=== PATIENT | female | born 2005 | race Two or more races ===

== ENCOUNTER 2025-04-14 13:13 | Inpatient (IN) | payer MEDICAID, OTHER ==
[~2025-04-14] VITALS: Ht 157.5 cm; Wt 46.9 kg
[2025-04-14] MEDS: SODIUM CHLORIDE 0.9% 1,000 ML IV ONE (15:00)
--- NOTE | 2025-04-14 15:09 | ED.PDOC ---
HPI (NEURO) HPI Comments 19-year-old female who presents to the ED for chief complaint of fall injury. Patient states approximately 1 hour ago she was feeling anxious, went into her [id number] room, then remembers waking up on the floor with a headache. Patient was apparently witnessed by [id number] having body shaking and droo ling, which lasted a minute, during which time the patient was unresponsive. Patient in the ED has noted bruise in the left side of the forehead but is otherwise alert and oriented x4 and able to answer all questions. Patient in the ED presents in wheelchair and states she is having a headache 10 of 10 with the associated exacerbating factor of moving her head and no relieving factors. Pt presents with mother who states that patient has a history of chronic headaches and states that she has a an appointment to see neurologist. Patient otherwise denies any history of seizures and denies having seen a neurologist or having taken antiseizure medication in the past. Patient has noted blood pressure of 130/91, heart rate 119 but otherwise stable vitals include temperature of 97.6 F respiratory rate 16 and O2 sat of 97% on room air. Patient in the ED otherwise denies any other symptoms at this time. 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 [employer]IAL History: No Pertinent R[employer]ATOR [employer]IAL History Family History Family History: Reviewed,noncontributory to illness Social History Smoker: Non-Smoker Alcohol: Denies ETOH Use Drugs: Denies Drug Use Lives In: Home Constitutional: denies: chills, diaphoresis, fatigue, fever, malaise, sweats, weakness, others EENTM: denies: blurred vision, double vision, ear bleeding, ear discharge, ear drainage, ear pain, ear ringing, eye pain, eye redness, hearing loss, mouth pain, mouth swelling, nasal discharge, nose bleeding, nose congestion, nose pain, photophobia, tearing, throat pain, throat swelling, voice changes, others Respiratory: denies: cough, hemoptysis, orthopnea, SOB at rest, shortness of breath, SOB with excertion, stridor, wheezing, others Cardiovascular: denies: chest pain, dizzy spells, diaphoresis, Dyspnea on exertion, edema, irregular heart beat, left arm pain, lightheadedness, palpitations, PND, syncope, others Gastrointestinal: denies: abdomen distended, abdominal pain, blood streaked bowels, constipated, diarrhea, dysphagia, difficulty swallowing, hematemesis, melena, nausea, poor appetite, poor fluid intake, rectal bleeding, rectal pain, vomiting, others Genitourinary: denies: abnormal vagina bleeding, burning, dyspareunia, dysuria, flank pain, frequency, hematuria, incontinence, pain, , vagina discharge, urgency, others Neurological: reports: fainting, headache; denies: dizziness, left sided numbness, left sided weakness, numbness, paresthesia, pre-existing deficit, right sided numbness, right sided weakness, seizure, speech problems, tingling, tremors, weakness, others Musculoskeletal: denies: back pain, gout, joint pain, joint swelling, muscle pain, muscle stiffness, neck pain, others Integumetry: denies: bruises, change in color, change in hair/nails, dryness, laceration, lesions, lumps, rash, wounds, others Allergic/Immunocompromised: denies: Difficulty Healing, Frequent Infections, Hives, Itching, others Hematologic/Lymphatic: denies: anemia, blood clots, easy bleeding, easy bruising, swollen glands, others Endocrine: denies: excessive hunger, excessive sweating, excessive thirst, excessive urination, flushing, intolerance to cold, intolerance to heat, unexplained weight gain, unexplained weight loss, others Psychiatric: denies: anxiety, bipolar disorder, depression, hopeless, panic disorder, schizophrenia, sleepless, suicidal, others All Other Systems: Reviewed and Negative Physical Exam General Appearance: Mild Distress HEENT: PERRL/EOMI, Other (Left forehead tender hematoma) Neck: Full Range of Motion, Normal Inspection, Other (Bilateral paraspinal tenderness to palpation) Respiratory: Lungs Clear, No Accessory Muscle Use, No Respiratory Distress, Normal Breath Sounds Cardiovascular: No Edema, No JVD, Tachycardia Breast Exam: Deferred Gastrointestinal: Non Tender, Soft Genitalia: Deferred Pelvic: Deferred Rectal: Deferred Extremities: Normal inspection, Normal range of motion, Non-tender, No pedal edema Neurologic: Alert (Oriented x4), Normal Affect, Normal Mood, Other (Ambulatory) Cerebellar Function: NOT DONE Reflexes: NOT DONE Skin: Dry, Normal Color, Warm Lymphatic: NOT DONE Was a procedure done? Was a procedure done?: No Differential Diagnosis (SZ) Seizure: Psychogenic Seizure, Alcohol Withdrawl, Closed Head Injury, Drug Ingestion, Hypocalcemia, Hypoglycemia, Hyponatremia, Hypoxemia, Idiopathic, Syncope, Encephalopathy Headache: Migraine, Closed Head Injury, Intracerebral Hemorrhage, Subarachnoid Hemorrhage, Subdural Hemorrhage, Post-Traumatic X-Ray, Labs, Meds, VS Vital Signs Date Time Temp Pulse Resp B/P (MAP) Pulse Ox O2 Delivery O2 Flow Rate FiO2 04/14/25 18:52 83 16 108/69 (82) 97 04/14/25 13:18 97.6 119 16 130/91 97 97.6 Lab Test 04/14/25 19:16 04/14/25 16:09 04/14/25 15:08 Range/Units Urine Color Yellow Yellow Urine Clarity Turbid H Clear Urine pH 6.0 5.0-9.0 Urine Specific [place] 1.035 1.001-1.035 Urine Protein Trace H Negative Urine Ketones 1+ H Negative Urine Blood Negative Negative /uL Urine Nitrite Negative Negative Urine Bilirubin Negative Negative Urine Urobilinogen Normal Negative mg/dL Urine Leukocyte Esterase Negative Negative /uL Urine RBC 2 0 - 4 /hpf Urine Microscopic WBC 2 0-5 /HPF Urine Squamous Epithelial Cells Mod <5 /hpf Urine Amorphous Crystals Few None Seen /hpf Urine Bacteria Few H None Seen /hpf Urine Mucus Few None Seen Urine Glucose Normal Normal mg/dL Troponin I High Sensitivity < 3 L < 3 L </=34 ng/L White Blood Count 20.0 H 4.4-10.8 10^3/uL Red Blood Count 4.93 4.0-5.20 10^6/uL Hemoglobin 15.9 12.2-16.2 g/dL Hematocrit 46.7 H 36.0-46.0 % Mean Corpuscular Volume 94.7 80.0-100.0 fL Mean Corpuscular Hemoglobin 32.3 H 28.0-32.0 pg Mean Corpuscular Hemoglobin Concent 34.1 32.0-36.0 g/dL Red Cell Distribution Width 13.4 11.8-14.3 % Platelet Count 264 140-450 10^3/uL Mean Platelet Volume 9.4 6.9-10.8 fL Neutrophils (%) (Auto) 85.2 H 37.0-80.0 % Lymphocytes (%) (Auto) 10.4 10.0-50.0 % Monocytes (%) (Auto) 4.2 0.0-12.0 % Eosinophils (%) (Auto) 0.0 0.0-7.0 % Basophils (%) (Auto) 0.2 0.0-2.0 % Neutrophils # (Auto) 17.0 H 1.6-8.6 10 ^3/uL Lymphocytes # (Auto) 2.1 0.4-5.4 10 ^3/uL Monocytes # (Auto) 0.8 0-1.3 10 ^3/uL Eosinophils # (Auto) 0 0-0.8 10 ^3/uL Basophils # (Auto) 0 0-0.2 10 ^3/uL Nucleated Red Blood Cells 0.0 % Sodium Level 139 136-145 mmol/L Potassium Level 3.9 3.5-5.1 mmol/L Chloride Level 105 98-107 mmol/L Carbon Dioxide Level 25 20-31 mmol/L Anion Gap 9 5-15 Blood Urea Nitrogen 6 L 9-23 mg/dL Creatinine 0.77 0.550-1.02 mg/dL Glomerular Filtration Rate Calc 114 >90 mL/min BUN/Creatinine Ratio 7.8 L 10.0-20.0 Serum Glucose 92 74-106 mg/dL Calcium Level 9.7 8.7-10.4 mg/dL Current Medications Medications (Trade) Dose Ordered Sig/Balbir Route Start Time Stop Time Status Last Admin Sodium Chloride 1,000 ml @ 1,000 mls/hr Q1H ONCE IV 04/14/25 15:00 04/14/25 15:59 DC 04/14/25 15:00 Acetaminophen/ Hydrocodone Bitart ([place] 5/325MG Tab) 1 tab ONCE ONCE PO 04/14/25 15:00 04/14/25 15:03 DC 04/14/25 16:[address] [address] Ph: [phone] DIAGNOSTIC IMAGING Diagnostic Imaging Report : [id number] Signed PATIENT: KAYLEEN SIDHU ACCT: [id number] UNIT: [id number] : 2005 LOC: ER ROOM / BED: / AGE / SEX: 19 / F ADM STATUS: REG ER SERVICE [id number] ORDERING PHYSICIAN: MANOJ KELSEY MD PROCEDURE(s): HWOCT - HEAD WITHOUT CONTRAST REASON: Possible seizure, left forehead injury ORDER NUMBER(s): [id number], ACCESSION NUMBER(s): [id number] CLINICAL HISTORY: Possible seizure, left forehead injury TECHNIQUE: Helical scanning was performed of the head from the skull base to the vertex. Multiplanar reconstructions were performed. This exam was performed according to our departmental dose optimization program. Up-to-date CT equipment and radiation dose reduction techniques are utilized as appropriate. CTDI 49 DLP 783 COMPARISON: None FINDINGS: There is no evidence for acute intracranial hemorrhage, acute ischemic changes, mass, mass effect, or extra-axial fluid collection. There is no hydrocephalus or midline shift. There is no effacement of the cerebral sulci and basal subarachnoid cisterns. The matamoors-white matter differentiation is well maintained. 3rd of the mild left frontal scalp soft tissue swelling. No underlying skull fracture is seen. The imaged paranasal sinuses are clear. IMPRESSION: Mild left frontal scalp soft tissue swelling. No underlying acute intracranial abnormality seen. ATED BY: JAJA GARCIA MD DICTATED DATE/TIME: 04/14/25 155 SIGNED BY: JAJA GARCIA MD SIGNED DATE/TIME: 04/14/25 155 CC: [place] [id number] Ph: [phone] DIAGNOSTIC IMAGING Diagnostic Imaging Report : [id number] Signed PATIENT: KAYLEEN SIDHU ACCT: [id number] UNIT: [id number] : 2005 LOC: ER ROOM / BED: / AGE / SEX: 19 / F ADM STATUS: REG ER SERVICE 145 ORDERING PHYSICIAN: MANOJ KELSEY MD PROCEDURE(s): CS2 - CERVICAL WITHOUT CONTRAST REASON: Possible seizure, head injury, neck pain ORDER NUMBER(s): [id number], ACCESSION NUMBER(s): [id number] EXAM: CT CERVICAL WITHOUT CONTRAST INDICATION: Possible seizure, head injury, neck pain EXAM DATE: 04/14/2025 03:06 PM COMPARISON: CT HEAD WITHOUT CONTRAST on DOS: 04/14/25 TECHNIQUE: Noncontrast axial CT images of the cervical spine were performed. Sagittal and coronal reformatted images were obtained. Radiation optimization: All CT scans at this facility use at least one of these dose optimization techniques: automated exposure control mA and/or kV adjustment per patient size (includes targeted exams where dose is matched to clinical indication) or iterative reconstruction. Radiation Dose Information: CT Dose: CTDI volume is 11.66 mGy. Dose-length product is 276.76 mGy*cm FINDINGS: No fracture or listhesis of the cervical spine. There is mild cervical degenerative disc disease. No high-grade spinal canal stenosis or neural foraminal stenosis at any level in the cervical spine. There is cerebellar tonsillar ectopia, greater on the right, extending below the level of the tip of the odontoid, consistent with Chiari I malformation. There is associated crowding of the foramen magnum. There is a dental cavity involving the most posterior right mandibular molar tooth. There is le tonsillar hypertrophy without significant airway narrowing. IMPRESSION: 1. No fracture of the cervical spine. 2. Mild cervical degenerative disc disease. 3. 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 Recommend follow-up noncontrast MRI of the brain for better characterization. Neurosurgical consultation is recommended on a nonemergent basis. 4. At least 1 dental cavity involving the most posterior right mandibular molar tooth. The teeth are not fully imaged here. Recommend outpatient dental consultation. ATED BY: BEAR MENAS MD DICTATED DATE/TIME: 04/14/25 1600 SIGNED BY: BEAR MEANS MD SIGNED DATE/TIME: 04/14/25 1600 CC: X-Ray, Labs, Meds, VS Comment 19-year-old female with a history of chronic headaches and prior intussusception brought in by family for evaluation of an episode of shaking, drooling and unresponsiveness. Patient is amnestic to those events. Vitals remarkable for heart rate 119, BP 130/91 Exam remarkable for left forehead hematoma, cervical paraspinal muscle tenderness Rhythm strip independently interpreted by me: Sinus tach, rate 119, no ectopy. CT head and C-spine remarkable for the following: Cerebellar tonsillar ectopia with probable chiari I malformation and associated crowding of the foramen magnum. Recommend follow-up noncontrast MRI of the b rain for better characterization. CBC for WBC 20, metabolic panel unremarkable, troponins negative, UA consistent with a contaminated specimen Patient treated with the following in the ED: 1 L 0.9 normal saline IV bolus, [place] 5/325 mg p.o. On re-evaluation, pain has improved. Tachycardia has resolved. Vitals are otherwise stable. No new neurologic changes. Plan is to admit the patient for brain MRI and Neurology evaluation for possible new onset seizure Time of 1ST Reevaluation: 18:00 Reevaluation 1ST: Improved Patient Education/Counseling: Diagnosis, Treatment Family Education/Counseling: Diagnosis, Treatment Departure 1 Departure Time of Disposition: 18:00 Impression: Primary Impression: New onset seizure Additional Impression: Head injury Qualified Codes: S09.90XA - Unspecified injury of head, initial encounter Disposition: ADMITTED INPATIENT Admit to: Tele Condition: Guarded Critical Care Note Critical Care Time?: No Stability Stability form required: No Heart Score Heart Score: Heart Score Response (Comments) Value History N/A 0 EKG N/A 0 Age N/A 0 Risk Factors N/A 0 Troponin N/A 0 Total 0 I personally scribed for MANOJ KELSEY MD ([email or web address]) on 04/14/25 at 15:09. Electronically submitted by [facility]sh[facility] ([facility] I personally scribed for MANOJ KELSEY MD ([email or web address]) on 04/14/25 at 16:12. Electronically submitted by Maurice Arshad ([email or web address]). MANOJ KELSEY MD Apr 14, 2025 15:09
[2025-04-14 15:20] LABS: Hematocrit 46.7 % (36.0-46.0); Hemoglobin 15.9 g/dL (12.2-16.2); Mean Corpuscular Hemoglobin 32.3 pg (28.0-32.0); Mean Corpuscular Volume 94.7 fL (80.0-100.0); Nucleated Red Blood Cells % 0.0 %
[2025-04-14 15:31] LABS: Chloride 105 mmol/L (98-107); Potassium 3.9 mmol/L (3.5-5.1); Sodium 139 mmol/L (136-145)
[2025-04-14 15:32] LABS: Anion Gap 9 (5-15); Calcium 9.7 mg/dL (8.7-10.4); Carbon Dioxide 25 mmol/L (20-31)
[2025-04-14 15:37] LABS: BUN/Creatinine Ratio 7.8 (10.0-20.0); Glucose 92 mg/dL (74-106)
[2025-04-14 15:38] LABS: Blood Urea Nitrogen 6 mg/dL (9-23)
--- NOTE | 2025-04-14 15:55 | DVH ---
CLINICAL HISTORY: Possible seizure, left forehead injury TECHNIQUE: Helical scanning was performed of the head from the skull base to the vertex. Multiplanar reconstructions were performed. This exam was performed according to our departmental dose optimizat ion program. Up-to-date CT equipment and radiation dose reduction techniques are utilized as appropri ate. CTDI 49 DLP 783 COMPARISON: None FINDINGS: There is no evidence for acute intracranial hemorrhage, acute ischemic changes, mass, mass effect, or extra-axial fluid collection. There is no hydrocephalus or midline shift. There is no effacement of the cerebral sulci and basal subarachnoid cisterns. The matamoros-white matter differentiation is well rhianna ntained. 3rd of the mild left frontal scalp soft tissue swelling. No underlying skull fracture is see n. The imaged paranasal sinuses are clear. IMPRESSION: Mild left frontal scalp soft tissue swelling. No underlying acute intracranial abnormality seen.
--- NOTE | 2025-04-14 16:03 | DVH ---
EXAM: CT CERVICAL WITHOUT CONTRAST INDICATION: Possible seizure, head injury, neck pain EXAM DATE: 04/14/2025 03:06 PM COMPARISON: CT HEAD WITHOUT CONTRAST on DOS: 04/14/25 TECHNIQUE: Noncontrast axial CT images of the cervical spine were performed. Sagittal and coronal ref ormatted images were obtained. Radiation optimization: All CT scans at this facility use at least one of these dose optimization techniques: automated exposure control mA and/or kV adjustment per patie nt size (includes targeted exams where dose is matched to clinical indication) or iterative reconstr uction. Radiation Dose Information: CT Dose: CTDI volume is 11.66 mGy. Dose-length product is 276.76 mGy*cm FINDINGS: No fracture or listhesis of the cervical spine. There is mild cervical degenerative disc disease. No high-grade spinal canal stenosis or neural foraminal stenosis at any level in the cervical spine. Th ere is cerebellar tonsillar ectopia, greater on the right, extending below the level of the tip of th e odontoid, consistent with Chiari I malformation. There is associated crowding of the foramen magnu m. There is a dental cavity involving the most posterior right mandibular molar tooth. There is le t onsillar hypertrophy without significant airway narrowing. IMPRESSION: 1. No fracture of the cervical spine. 2. Mild cervical degenerative disc disease. 3. 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 Recommend follow-up noncontrast MRI of the brain for better characterization. Neurosur gical consultation is recommended on a nonemergent basis. 4. At least 1 dental cavity involving the most posterior right mandibular molar tooth. The teeth are not fully imaged here. Recommend outpatient dental consultation.
[2025-04-14] MEDS: HYDROcodone-ACET 5/325MG TAB PO ONE (16:05)
[2025-04-14 19:34] LABS: Urine Amorphous Crystal FEW /hpf (None Seen); Urine Protein, UAD TRACE (Negative)
[2025-04-14 21:55] VITALS: BP 111/81; PULSE 72; RESP 18; TEMP 98; O2SAT 99
[2025-04-14] MEDS ORDERED: HYDROcodone-ACET 5/325MG TAB PO PRN (22:30)
[2025-04-14] MEDS ORDERED: ONDANSETRON HCL 4 MG/2 ML VIAL IV PRN (22:30)
[2025-04-14 23:06] LABS: Cannabinoid Screen, Urine Pos (NEGATIVE)
[2025-04-14 23:09] LABS: Amphetamine Screen, Urine Neg (NEGATIVE); Barbiturate Scree,Urine Neg (NEGATIVE); Benzodiazephine Screen, Urine Neg (NEGATIVE); Cocaine Screen, Urine Neg (NEGATIVE); Opiate Scree,Urine Pos (NEGATIVE); Phencyclidine Screen, Urine Neg (NEGATIVE)
[2025-04-14 23:22] LABS: INR 1.03 (0.9-1.15); Prothrombin Time 10.9 sec (9.3-11.8)
[2025-04-15 00:13] LABS: Alanine Aminotransferase 11 U/L (7-40); Alkaline Phosphatase 72 U/L (46-116); Magnesium 2.2 mg/dL (1.6-2.6); Total Protein 7.1 g/dL (5.7-8.2)
[2025-04-15 00:14] LABS: Albumin 4.6 g/dL (3.2-4.8); Bilirubin, Direct 0.2 mg/dL (<0.3); Bilirubin, Total 0.6 mg/dL (0.2-1.0)
--- NOTE | 2025-04-15 09:11 | DVHDSRES ---
Discharge Summary Date of Admission Resident Creating Document: KENDRA MARTINEZ RESIDENT Apr 14, 2025 at 22:28 Date of Discharge: Apr 14, 2025 Admitting Diagnosis New onset seizure Labs/Diagnostic Data: Laboratory Results Test 04/14/25 22:50 04/14/25 19:16 04/14/25 16:09 04/14/25 15:08 Prothrombin Time 10.9 sec (9.3-11.8) Prothrombin Time INR 1.03 (0.9-1.15) Magnesium Level 2.2 mg/dL (1.6-2.6) Total Bilirubin 0.6 mg/dL (0.2-1.0) Direct Bilirubin 0.2 mg/dL (<0.3) Aspartate Amino Transferase (AST) 21 U/L (13-40) Alanine Aminotransferase (ALT) 11 U/L (7-40) Alkaline Phosphatase 72 U/L (46-116) Total Protein 7.1 g/dL (5.7-8.2) Albumin 4.6 g/dL (3.2-4.8) Plasma/Serum Blood Alcohol < 3.0 mg/dL (<10) Urine Color Yellow (Yellow) Urine Clarity Turbid (Clear) Urine pH 6.0 (5.0-9.0) Urine Specific [place] 1.035 (1.001-1.035) Urine Protein Trace (Negative) Urine Ketones 1+ (Negative) Urine Blood Negative /uL (Negative) Urine Nitrite Negative (Negative) Urine Bilirubin Negative (Negative) Urine Urobilinogen Normal mg/dL (Negative) Urine Leukocyte Esterase Negative /uL (Negative) Urine RBC 2 /hpf (0 - 4) Urine Microscopic WBC 2 /HPF (0-5) Urine Squamous Epithelial Cells Mod /hpf (<5) Urine Amorphous Crystals Few /hpf (None Seen) Urine Bacteria Few /hpf (None Seen) Urine Mucus Few (None Seen) Urine Glucose Normal mg/dL (Normal) Urine Opiates Screen Pos (NEGATIVE) Urine Fentanyl Screen Neg (NEGATIVE) Urine Barbiturates Screen Neg (NEGATIVE) Urine Phencyclidine Screen Neg (NEGATIVE) Urine Amphetamines Screen Neg (NEGATIVE) Urine Benzodiazepines Screen Neg (NEGATIVE) Urine Cocaine Screen Neg (NEGATIVE) Urine Cannabinoids Screen Pos (NEGATIVE) Troponin I High Sensitivity < 3 ng/L (</=34) Beta HCG, Quantitative < 0.0 mIU/mL (1.5-4.2) White Blood Count 20.0 10^3/uL (4.4-10.8) Red Blood Count 4.93 10^6/uL (4.0-5.20) Hemoglobin 15.9 g/dL (12.2-16.2) Hematocrit 46.7 % (36.0-46.0) Mean Corpuscular Volume 94.7 fL (80.0-100.0) Mean Corpuscular Hemoglobin 32.3 pg (28.0-32.0) Mean Corpuscular Hemoglobin Concent 34.1 g/dL (32.0-36.0) Red Cell Distribution Width 13.4 % (11.8-14.3) Platelet Count 264 10^3/uL (140-450) Mean Platelet Volume 9.4 fL (6.9-10.8) Neutrophils (%) (Auto) 85.2 % (37.0-80.0) Lymphocytes (%) (Auto) 10.4 % (10.0-50.0) Monocytes (%) (Auto) 4.2 % (0.0-12.0) Eosinophils (%) (Auto) 0.0 % (0.0-7.0) Basophils (%) (Auto) 0.2 % (0.0-2.0) Neutrophils # (Auto) 17.0 10 ^3/uL (1.6-8.6) Lymphocytes # (Auto) 2.1 10 ^3/uL (0.4-5.4) Monocytes # (Auto) 0.8 10 ^3/uL (0-1.3) Eosinophils # (Auto) 0 10 ^3/uL (0-0.8) Basophils # (Auto) 0 10 ^3/uL (0-0.2) Nucleated Red Blood Cells 0.0 % Sodium Level 139 mmol/L (136-145) Potassium Level 3.9 mmol/L (3.5-5.1) Chloride Level 105 mmol/L (98-107) Carbon Dioxide Level 25 mmol/L (20-31) Anion Gap 9 (5-15) Blood Urea Nitrogen 6 mg/dL (9-23) Creatinine 0.77 mg/dL (0.550-1.02) Glomerular Filtration Rate Calc 114 mL/min (>90) BUN/Creatinine Ratio 7.8 (10.0-20.0) Serum Glucose 92 mg/dL (74-106) Calcium Level 9.7 mg/dL (8.7-10.4) Other Laboratory Tests 04/14/25 15:08 Brief Hx & Hospital Course: 19-year-old female who presents to the ED for chief complaint of fall injury. Patient states approximately 1 hour ago she was feeling anxious, went into her xnwcwj-ay-iuw's room, then remembers waking up on the floor with a headache. Patient was apparently witnessed by [id number] having body shaking and drooling, which lasted a minute, during which time the patient was unresponsive. Patient in the ED has noted bruise in the left side of the forehead but is otherwise alert and oriented x4 and able to answer all questions. Patient in the ED presents in wheelchair and states she is having a headache 10 of 10 with the associated exacerbating factor of moving her head and no relieving factors. Pt presents with mother who states that patient has a history of chronic headaches and states that she has a an appointment to see neurologist. Patient otherwise denies any history of seizures and denies having seen a neurologist or having taken antiseizure medication in the past. Patient has noted blood pressure of 130/91, heart rate 119 but otherwise stable vitals include temperature of 97.6 F respiratory rate 16 and O2 sat of 97% on room air. Patient in the ED otherwise denies any other symptoms at this time. Brief hospital course: Who came to the ED with chief complaint of fall, new onset seizure, chronic headaches, was given IV fluids, pain management, and lateral root studies were done. Neurology was consulted, seizure precautions were done, neuro checks were ordered. Patient stated that she only had 1 episode and wanted to leave AMA. Patient was advised multiple times risks of leaving the hospital and was advised to consult with the neurologist and take antiseizure medications but still patient wanted to leave. She signed the AMA form and has of the hospital. Patient was advised to return to the ED if symptoms have worsened. Operations or Procedures ORDERING PHYSICIAN: MANOJ KELSEY MD PROCEDURE(s): HWOCT - HEAD WITHOUT CONTRAST REASON: Possible seizure, left forehead injury ORDER NUMBER(s): [id number], ACCESSION NUMBER(s): [id number] CLINICAL HISTORY: Possible seizure, left forehead injury TECHNIQUE: Helical scanning was performed of the head from the skull base to the vertex. Multiplanar reconstructions were performed. This exam was performed according to our departmental dose optimization program. Up-to-date CT equipment and radiation dose reduction techniques are utilized as appropriate. CTDI 49 DLP 783 COMPARISON: None FINDINGS: There is no evidence for acute intracranial hemorrhage, acute ischemic changes, mass, mass effect, or extra-axial fluid collection. There is no hydrocephalus or midline shift. There is no effacement of the cerebral sulci and basal subarachnoid cisterns. The matamoros-white matter differentiation is well maintained. 3rd of the mild left frontal scalp soft tissue swelling. No underlying skull fracture is seen. The imaged paranasal sinuses are clear. IMPRESSION: Mild left frontal scalp soft tissue swelling. No underlying acute intracranial abnormality seen. ATED BY: JAJA GARCIA MD DICTATED DATE/TIME: 04/14/25 155 SIGNED BY: JAJA GARCIA MD SIGNED DATE/TIME: 04/14/25 155 ORDERING PHYSICIAN: MANOJ KELSEY MD PROCEDURE(s): CS2 - CERVICAL WITHOUT CONTRAST REASON: Possible seizure, head injury, neck pain ORDER NUMBER(s): [id number], ACCESSION NUMBER(s): [id number] EXAM: CT CERVICAL WITHOUT CONTRAST INDICATION: Possible seizure, head injury, neck pain EXAM DATE: 04/14/2025 03:06 PM COMPARISON: CT HEAD WITHOUT CONTRAST on DOS: 04/14/25 TECHNIQUE: Noncontrast axial CT images of the cervical spine were performed. Sagittal and coronal reformatted images were obtained. Radiation optimization: All CT scans at this facility use at least one of these dose optimization techniques: automated exposure control mA and/or kV adjustment per patient size (includes targeted exams where dose is matched to clinical indication) or iterative reconstruction. Radiation Dose Information: CT Dose: CTDI volume is 11.66 mGy. Dose-length product is 276.76 mGy*cm FINDINGS: No fracture or listhesis of the cervical spine. There is mild cervical degenerative disc disease. No high-grade spinal canal stenosis or neural foraminal stenosis at any level in the cervical spine. There is cerebellar tonsillar ectopia, greater on the right, extending below the level of the tip of the odontoid, consistent with Chiari I malformation. There is associated crowding of the foramen magnum. There is a dental cavity involving the most posterior right mandibular molar tooth. There is le tonsillar hypertrophy without significant airway narrowing. IMPRESSION: 1. No fracture of the cervical spine. 2. Mild cervical degenerative disc disease. 3. 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 Recommend follow-up noncontrast MRI of the brain for better characterization. Neurosurgical consultation is recommended on a nonemergent basis. 4. At least 1 dental cavity involving the most posterior right mandibular molar tooth. The teeth are not fully imaged here. Recommend outpatient dental consultation. ATED BY: BEAR MEANS MD DICTATED DATE/TIME: 04/14/251599 SIGNED BY: BEAR MEANS MD New onset seizure Condition at Discharge: Undetermined Final Diagnosis/Problems List #New onset seizure possibly due to drug abuse # rule out traumatic brain injury # rule out meningitis # rule out hepatic encephalopathy # rule out hypoglycemia induced seizures # rule out alcohol withdrawal # rule out epilepsy Discharge Disposition: AMA Discharge Statement: "Patient was advised to return to the ER or call 911 if any headaches, dizziness, shortness of breath, chest pain, abdominal pain, bleeding, fevers, or worsening of medical condition. Patient was counseled about treatment plan, medications, possible side effects, patientverbalized understanding. All questions were answered to the best of my ability. This discharge took greater then 30 minutes in planning, reviewing documentation, counseling the patient, and discussing with other team members." ASSESSMENT ASSESSMENT Assessment KENDRA MARTINEZ RESIDENT Apr 15, 2025 09:11
--- NOTE | 2025-04-15 21:40 | DVHHPRES ---
History of Present Illness Resident Creating Document: KENDRA MARTINEZ RESIDENT History of Present Illness 19-year-old female who presents to the ED for chief complaint of fall injury. Patient states approximately 1 hour ago she was feeling anxious, went into her uxstqd-gy-spd's room, then remembers waking up on the floor with a headache. Patient was apparently witnessed by [id number] having body shaking and drooling, which lasted a minute, during which time the patient was unresponsive. Patient in the ED has noted bruise in the left side of the forehead but is otherwise alert and oriented x4 and able to answer all questions. Patient in the ED presents in wheelchair and states she is having a headache 10 of 10 with the associated exacerbating factor of moving her head and no relieving factors. Pt presents with mother who states that patient has a history of chronic headaches and states that she has a an appointment to see neurologist. Patient otherwise denies any history of seizures and denies having seen a neurologist or having taken antiseizure medication in the past. Review of Systems Constitutional: No: Fever, Chills, Sweats, Weakness, Malaise, Other Eyes: No: Pain, Vision change, Conjunctivae inflammation, Eyelid inflammation, Other, Redness ENT: No: Ear pain, Ear discharge, Nose pain, Nose discharge, Nose congestion, Mouth pain, Mouth swelling, Throat pain, Throat swelling, Other Respiratory: No: Cough, Dry, Shortness of breath, SOB with excertion, Wheezing, Hemoptysis, Pleuritic Pain, Sputum, Wheezing, Other Cardiovascular: No: Chest Pain, Palpitations, Orthopnea, Paroxysmal Noc. Dyspnea, Edema, Lt Headedness, Other Gastrointestinal: No: Nausea, Vomiting, Abdominal Pain, Diarrhea, Constipation, Melena, Hematochezia, Other Genitourinary: No Dysuria, No Frequency, No Incontinence, No Hematuria, No Retention, No Other Musculoskeletal: No: other, neck pain, shoulder pain, arm pain, back pain, hand pain, leg pain, foot pain Skin: No: Rash, Lesions, Jaundice, Bruising, Other Neurological: Weakness; No: Numbness, Incoordination, Change in speech, Confusion, Seizures, Other Allergies: Coded Allergies: NO KNOWN ALLERGIES (Unverified , 04/14/25) Exam Vital Signs Vital Signs Date Time Temp Pulse Resp B/P (MAP) Pulse Ox O2 Delivery O2 Flow Rate FiO2 04/14/25 21:55 98.0 72 18 111/81 (91) 99 98.0 Exam General: Patient alert and oriented in person, place and time. Patient following commands. HEENT: Normocephalic, atraumatic, moist mucous membranes Respiratory/pulmonary: Clear lungs bilaterally, vesicular murmurs present in almost all lung ibarra, no associated crackles or wheezes. Cardiovascular: Normal heart sounds S1 and S2 with no associated murmurs Abdomen: Abdomen nondistended, there is no pain to palpation in any of the abdominal quadrants, no palpable masses. Extremities: There is no peripheral edema present at the lower extremities. Peripheral Pulses: 3+ Radial (R). 3+ Radial (L). 3+ Dorsalis pedis (R). 3+ Dorsalis pedis(L) Skin: No rashes or pruritus, there is no sacral edema present at this time. Neurological: Intact cranial nerves with no focal neurologic deficits Labs/Xrays Labs Test 04/14/25 22:50 04/14/25 19:16 04/14/25 16:09 04/14/25 15:08 Range/Units Prothrombin Time 10.9 9.3-11.8 sec Prothrombin Time INR 1.03 0.9-1.15 Magnesium Level 2.2 1.6-2.6 mg/dL Total Bilirubin 0.6 0.2-1.0 mg/dL Direct Bilirubin 0.2 <0.3 mg/dL Aspartate Amino Transferase (AST) 21 13-40 U/L Alanine Aminotransferase (ALT) 11 7-40 U/L Alkaline Phosphatase 72 46-116 U/L Total Protein 7.1 5.7-8.2 g/dL Albumin 4.6 3.2-4.8 g/dL Plasma/Serum Blood Alcohol < 3.0 <10 mg/dL Urine Color Yellow Yellow Urine Clarity Turbid H Clear Urine pH 6.0 5.0-9.0 Urine Specific [place] 1.035 1.001-1.035 Urine Protein Trace H Negative Urine Ketones 1+ H Negative Urine Blood Negative Negative /uL Urine Nitrite Negative Negative Urine Bilirubin Negative Negative Urine Urobilinogen Normal Negative mg/dL Urine Leukocyte Esterase Negative Negative /uL Urine RBC 2 0 - 4 /hpf Urine Microscopic WBC 2 0-5 /HPF Urine Squamous Epithelial Cells Mod <5 /hpf Urine Amorphous Crystals Few None Seen /hpf Urine Bacteria Few H None Seen /hpf Urine Mucus Few None Seen Urine Glucose Normal Normal mg/dL Urine Opiates Screen Pos NEGATIVE Urine Fentanyl Screen Neg NEGATIVE Urine Barbiturates Screen Neg NEGATIVE Urine Phencyclidine Screen Neg NEGATIVE Urine Amphetamines Screen Neg NEGATIVE Urine Benzodiazepines Screen Neg NEGATIVE Urine Cocaine Screen Neg NEGATIVE Urine Cannabinoids Screen Pos NEGATIVE Troponin I High Sensitivity < 3 L </=34 ng/L Beta HCG, Quantitative < 0.0 L 1.5-4.2 mIU/mL White Blood Count 20.0 H 4.4-10.8 10^3/uL Red Blood Count 4.93 4.0-5.20 10^6/uL Hemoglobin 15.9 12.2-16.2 g/dL Hematocrit 46.7 H 36.0-46.0 % Mean Corpuscular Volume 94.7 80.0-100.0 fL Mean Corpuscular Hemoglobin 32.3 H 28.0-32.0 pg Mean Corpuscular Hemoglobin Concent 34.1 32.0-36.0 g/dL Red Cell Distribution Width 13.4 11.8-14.3 % Platelet Count 264 140-450 10^3/uL Mean Platelet Volume 9.4 6.9-10.8 fL Neutrophils (%) (Auto) 85.2 H 37.0-80.0 % Lymphocytes (%) (Auto) 10.4 10.0-50.0 % Monocytes (%) (Auto) 4.2 0.0-12.0 % Eosinophils (%) (Auto) 0.0 0.0-7.0 % Basophils (%) (Auto) 0.2 0.0-2.0 % Neutrophils # (Auto) 17.0 H 1.6-8.6 10 ^3/uL Lymphocytes # (Auto) 2.1 0.4-5.4 10 ^3/uL Monocytes # (Auto) 0.8 0-1.3 10 ^3/uL Eosinophils # (Auto) 0 0-0.8 10 ^3/uL Basophils # (Auto) 0 0-0.2 10 ^3/uL Nucleated Red Blood Cells 0.0 % Sodium Level 139 136-145 mmol/L Potassium Level 3.9 3.5-5.1 mmol/L Chloride Level 105 98-107 mmol/L Carbon Dioxide Level 25 20-31 mmol/L Anion Gap 9 5-15 Blood Urea Nitrogen 6 L 9-23 mg/dL Creatinine 0.77 0.550-1.02 mg/dL Glomerular Filtration Rate Calc 114 >90 mL/min BUN/Creatinine Ratio 7.8 L 10.0-20.0 Serum Glucose 92 74-106 mg/dL Calcium Level 9.7 8.7-10.4 mg/dL SEPSIS Sepsis Screen Date sepsis recognized/suspect: Apr 14, 2025 Time Sepsis recognized/suspect: 1322 Recent Procedure: No On Antibiotic Therapy: No Respiratory Rate >20: No Heart Rate >90: No Temp<36 C (96.8 F) or >38.3 C: No SBP <90 or MAP <65 mmHG: No New Acute Mental Status Change: No Is the patient on CPAP, BIPAP,: No Assessment/Plan Assessment/Plan #New onset seizure possibly due to drug abuse # rule out traumatic brain injury # rule out meningitis # rule out hepatic encephalopathy # rule out hypoglycemia induced seizures # rule out alcohol withdrawal # rule out epilepsy Goals of care addressed with the patient for more than 31 minutes: Full code status Case discussed with , patient and nurse Plan discussed with: Patient My Orders Orders - KENDRA MARTINEZ Procedure Category Date Status Time Admit ADMIT 04/14/25 Transmitted 22:28 Code Status CODE 04/14/25 Transmitted 22:28 Covid19 Antigen [facility] LAB 04/14/25 Logged Rapid Influenza A&B LAB 04/14/25 Logged 22:31 * Neurology Consult CONS 04/14/25 Transmitted 22:36 Date of Service: Apr 15, 2025 Billing Provider: KENDRA MARTINEZ Common Visit Codes: 00405-[id number] INP/OBS CARE (HIGH) Secondary Visit Codes: 40281-[id number] CARE PLAN 30 MINUTES KENDRA MARTINEZ Apr 15, 2025 21:40
== END 2025-04-14 23:58 | disposition left against medical advice (07) | DRG 53 ==
LOC: ER 13:13 → OVERFLOW 22:28
PROVIDERS: ATTEND Emergency Medicine
DX: R56.9 Unspecified convulsions (principal); K76.82 Hepatic encephalopathy; G03.9 Meningitis, unspecified; S09.90XA Unspecified injury of head, initial encounter; Z53.29 Procedure and treatment not carried out because of patient's decision for other reasons; W18.39XA Other fall on same level, initial encounter; E16.2 Hypoglycemia, unspecified; F10.239 Alcohol dependence with withdrawal, unspecified; Y90.9 Presence of alcohol in blood, level not specified; Y93.89 Activity, other specified; Y92.89 Other specified places as the place of occurrence of the external cause; Y99.8 Other external cause status
CPT/HCPCS: 36415; 70450; 72125; 80048; 80076; 80307; 80320; 81001; 83735; 84484; 84702; 85025; 85610; 96360; G0378